=== PATIENT | female | born 1935 | race Caucasian/White ===

== ENCOUNTER 2018-01-17 14:25 | Inpatient (IN) | payer OTHER ==
[2018-01-17] MEDS ORDERED: IPRATROPIUM BROM 0.5MG/2.5ML ONE (15:30)
[2018-01-17] MEDS ORDERED: ALBUTEROL 2.5 MG/3 ML NEB SOL ONE (15:30)
[2018-01-17 15:56] LABS: Absolute Lymphocytes (CBC) 1.3 K/uL (0.7-4.9); Absolute Monocytes 1.7 K/uL (0.1-1.3); Absolute Neutrophil 12.1 K/uL (1.8-8.0); Basophils % 0.2 % (0-1.3); Eosinophils % 0.1 % (0-4.4); Hematocrit 32.8 % (36.0-45.0); Lymphocytes % 8.5 % (15.3-44.8); MCH 28.1 pg (27.0-35.0); MCV 83.3 fL (80-100); Monocytes % 11.1 % (3.3-12.3); Protime INR 1.13; RBC Red Blood Cell Count 3.94 M/uL (3.86-4.86)
[2018-01-17 16:07] LABS: ALT/SGPT 31 U/L (12-78); AST/SGOT 26 U/L (15-37); Albumin 3.4 g/dL (3.4-5.0); Alkaline Phosphatase 174 U/L (45-117); BUN Blood Urea Nitrogen 18 mg/dL (7-18); Bicarbonate 22 mmol/L (21-32); Bilirubin Direct 0.5 mg/dL (0-0.2); Bilirubin Total 1.2 mg/dL (0.2-1.0); Glucose Level 121 mg/dL (74-106); Magnesium 1.9 mg/dL (1.8-2.4); NT PRO-BNP 539 pg/mL (<450); Potassium 3.4 mmol/L (3.5-5.1); Sodium Level 138 mmol/L (136-145); Troponin (Emerg Dept Use Only) < 0.02 ng/mL (0.0-0.045)
[2018-01-17] MEDS ORDERED: ASPIRIN 81 MG CHEWABLE TABLET ONE (16:27)
[2018-01-17] MEDS ORDERED: POTASSIUM 25 MEQ EFFERV TAB ONE (16:27)
--- NOTE | 2018-01-17 16:34 | RAD REPORT ---
EXAM DESCRIPTION: [place] [facility] And Lat (2 Views)01/17/2018 4:24 pm CLINICAL HISTORY: Cough COMPARISON: 2015 FINDINGS: Bibasilar lung opacities are seen. Upper lobes are clear. Moderate hiatal hernia is presen t. The heart is normal size IMPRESSION: Bibasilar lung opacities probably represent pneumonia. The should be followed until it i s clear to help exclude post obstructive process/underlying mass
[2018-01-17] MEDS ORDERED: Levofloxacin500mg IV 500 MG/100 ML BAG IV ONE (17:04)
--- NOTE | 2018-01-17 17:18 | ER ---
Nurse's Notes [facility] Name: Suha Renae Age: 82 yrs Sex: Female : 1935 Arrival Date: 01/17/2018 Time: 14:27 Bed 23 Private MD: Diagnosis: Pneumonia due to other specified bacteria-Bibasilar Presentation: 01/17 14:39 Presenting complaint: Patient states: Chills and fever for the past 3 days. Patient aj1 states that she was recently diagnosed with COPD, and she coughs all the time but it has gotten worse over the past few days. TMax 103. Reports SOB. Transition of care: patient was not received from another setting of care. Onset of symptoms was January 14, 2018. Risk Assessment: Do you want to hurt yourself or someone else? Patient reports no desire to harm self or others. Initial Sepsis Screen: Does the patient meet any 2 criteria? HR > 90 bpm. No. Patient's initial sepsis screen is negative. Does the patient have a suspected source of infection? Yes: Productive cough/pneumonia. Care prior to arrival: None. 14:39 Method Of Arrival: Ambulatory aj1 14:39 Acuity: KIMBERLEY 3 aj1 Triage Assessment: 14:42 General: Appears in no apparent distress. comfortable, Behavior is calm, cooperative, aj1 appropriate for age. Neuro: Level of Consciousness is awake, alert, obeys commands. Cardiovascular: Patient's skin is warm and dry. Respiratory: Reports shortness of breath cough that is productive, Airway is patent Respiratory effort is even, unlabored, Respiratory pattern is regular, symmetrical, Onset: The symptoms/episode began/occurred 3 days ago. 15:05 Cardiovascular: Heart tones S1 S2 Rhythm is sinus rhythm. Respiratory: the patient has tw2 moderate shortness of breath. GI: No signs and/or symptoms were reported involving the gastrointestinal system. Abdomen is flat, Bowel sounds present X 4 quads. : No signs and/or symptoms were reported regarding the genitourinary system. Historical: - Allergies: 14:42 No Known Allergies; aj1 - PMHx: 14:42 Hypertension; COPD; aj1 - Immunization history:: Adult Immunizations. - Social history:: Smoking status: Patient/guardian denies using tobacco. - Ebola Screening: : Patient denies travel to an Ebola-affected area in the 21 days before illness onset. Screenin:06 Abuse screen: Denies threats or abuse. Nutritional screening: No deficits noted. tw2 Tuberculosis screening: No symptoms or risk factors identified. Fall Risk None identified. Assessment: 15:01 General: Appears in no apparent distress. slender, Behavior is calm, cooperative, tw2 appropriate for age. Pain: Denies pain. Neuro: Level of Consciousness is awake, alert, obeys commands, Oriented to person, place, time, situation. Cardiovascular: Heart tones S1 S2 Capillary refill < 3 seconds Patient's skin is warm and dry. Rhythm is. Respiratory: Reports shortness of breath at rest on exertion cough that is Airway is patent Respiratory effort is even, unlabored, Respiratory pattern is regular, symmetrical, Breath sounds are clear bilaterally. GI: No signs and/or symptoms were reported involving the gastrointestinal system. Abdomen is flat. : No signs and/or symptoms were reported regarding the genitourinary system. EENT: No signs and/or symptoms were reported regarding the EENT system. Derm: No signs and/or symptoms reported regarding the dermatologic system. Skin is dry. Musculoskeletal: Range of motion: intact in all extremities. 16:41 Reassessment: Patient appears in no apparent distress at this time. No changes from tw2 previously documented assessment. Patient and/or family updated on plan of care and expected duration. Pain level reassessed. Patient is alert, oriented x 3, equal unlabored respirations, skin warm/dry/pink. 17:28 Reassessment: Patient appears in no apparent distress at this time. No changes from tw2 previously documented assessment. Patient and/or family updated on plan of care and expected duration. Pain level reassessed. Patient is alert, oriented x 3, equal unlabored respirations, skin warm/dry/pink. 17:48 Reassessment: LACTATE 2.3, notified CATA Byrne, sepsis sheet in chart. tw2 18:21 Reassessment: Patient appears in no apparent distress at this time. No changes from tw2 previously documented assessment. Patient and/or family updated on plan of care and expected duration. Pain level reassessed. Patient is alert, oriented x 3, equal unlabored respirations, skin warm/dry/pink. 19:01 Reassessment: Patient appears in no apparent distress at this time. Patient and/or jb4 family updated on plan of care and expected duration. Pain level reassessed. Patient is alert, oriented x 3, equal unlabored respirations, skin warm/dry/pink. 20:00 Reassessment: Patient appears in no apparent distress at this time. Patient and/or jb4 family updated on plan of care and expected duration. Pain level reassessed. Patient is alert, oriented x 3, equal unlabored respirations, skin warm/dry/pink. 21:00 Reassessment: Patient appears in no apparent distress at this time. Patient and/or jb4 family updated on plan of care and expected duration. Pain level reassessed. Patient is alert, oriented x 3, equal unlabored respirations, skin warm/dry/pink. Vital Signs: 14:42 BP 144 / 98; Pulse 92; Resp 20; Temp 97.9(TE); Pulse Ox 97% on R/A; Weight 55.34 kg aj1 (R); Height 5 ft. 2 in. (157.48 cm) (R); Pain 0/10; 15:13 BP 137 / 71; Pulse 98; Resp 17; Pulse Ox 95% on R/A; tw2 16:15 BP 118 / 86; Pulse 93; Resp 17; Pulse Ox 95% on R/A; tw2 17:28 BP 121 / 63; Pulse 98; Resp 17; Pulse Ox 96% on R/A; tw2 18:21 BP 114 / 61; Pulse 94; Resp 17; Pulse Ox 95% on R/A; tw2 19:02 BP 116 / 60; Pulse 90; Resp 18; Pulse Ox 96% on R/A; jb4 20:00 BP 135 / 62; Pulse 90; Resp 18; Pulse Ox 96% on R/A; jb4 21:00 BP 119 / 59; Pulse 87; Resp 16; Pulse Ox 98% on R/A; jb4 14:42 Body Mass Index 22.31 (55.34 kg, 157.48 cm) aj1 ED Course: 14:27 Patient arrived in ED. as 14:41 Triage completed. aj1 14:42 Arm band placed on Patient placed in an exam room. aj1 14:57 Eliza Braswell, RN is Primary Nurse. tw2 14:58 Bed in low position. Call light in reach. electronic device monitor on. Pulse ox on. NIBP on. tw2 15:14 Bennett Alarcon PA is PHCP. cp 15:14 Eliseo Monique MD is Attending Physician. cp 15:30 Inserted saline lock: 22 gauge in right antecubital area, using aseptic technique. tw2 Blood collected. 15:36 Radiology exam delayed due to patient receiving breathing treatment at this time. az 15:37 Influenza Screen (a \T\ B) Sent. tw2 15:49 EKG done, by digital technician. reviewed by Bennett IVY. tc 16:23 X-ray completed. Patient tolerated procedure well. Patient moved back from radiology. az 16:24 XRAY Chest Pa And Lat (2 Views) In Process Unspecified. EDMS 17:16 Lia Jimenez MD is Hospitalizing Provider. cp 18:55 Report given to GHAZALA Sanchez. tw2 20:48 Primary Nurse role handed off by Eliza Braswell RN jb4 20:48 Daniel Andres RN is Primary Nurse. jb4 22:34 Repeat lab(s) drawn. by mt, sent to lab. jp3 22:34 Urine Dipstick--Ancillary (enter results) Sent. jp3 Administered Medications: 15:37 Drug: Albuterol - atroVENT (3:1) (2.5 mg - 0.5 mg) 3 ml Route: Nebulizer; tw2 19:03 Follow up: Response: No adverse reaction tw2 16:41 Drug: Aspirin Chewable Tablet 324 mg Route: PO; tw2 16:51 Follow up: Response: No adverse reaction tw2 16:41 Drug: Potassium Effervescent Tablet 25 mEq Route: PO; tw2 16:51 Follow up: Response: No adverse reaction tw2 16:55 Drug: LevaQUIN 500 mg Volume: 100 ml; Route: IVPB; Infused Over: 60 mins; Site: right tw2 antecubital; 18:18 Follow up: Response: No adverse reaction; IV Status: Completed infusion tw2 17:27 Drug: NS 0.9% 1000 ml Route: IV; Rate: 75 ml/hr; Site: right antecubital; tw2 17:52 Drug: NS 0.9% 500 ml Route: IV; Rate: bolus; Site: right antecubital; tw2 18:54 Follow up: IV Status: Completed infusion; IV Intake: 500ml tw2 Intake: 18:54 IV: 500ml; Total: 500ml. tw2 Outcome: 17:17 Decision to Hospitalize by Provider. cp 23:21 Patient left the ED. jb4 Signatures: Dispatcher [employer] EDMS Vika Peter, RN RN aj1 Eve Turner Tiffany, director software EKG Ttc Bennett Alarcon PA PA cp Wise, Tara, RN RN tw2 Daniel Andres RN RN jb4 Cullen Zee 3 Wen Vu
--- NOTE | 2018-01-17 17:18 | EDPHYS ---
Physician Documentation [facility] Name: Suha Renae Age: 82 yrs Sex: Female : 1935 Arrival Date: 01/17/2018 Time: 14:27 Bed 23 Private MD: ED Physician Eliseo Monique HPI: 01/17 15:25 This 82 yrs old Female presents to ER via Ambulatory with complaints of cp Shortness Of Breath, Cough. 15:25 The patient or guardian reports cough, that is intermittent, with productive sputum. cp 15:25 Onset: The symptoms/episode began/occurred 2 week(s) ago, and became worse 5 day(s) cp ago. Associated signs and symptoms: Pertinent positives: fever, Pertinent negatives: chest pain, diarrhea, vomiting. Severity of symptoms: in the emergency department the symptoms are unchanged despite home interventions. Patient reports fever of 103 yesterday. Has been taking OTC tylenol. Historical: - Allergies: 14:42 No Known Allergies; aj1 - PMHx: 14:42 Hypertension; COPD; aj1 - Immunization history:: Adult Immunizations. - Social history:: Smoking status: Patient/guardian denies using tobacco. - Ebola Screening: : Patient denies travel to an Ebola-affected area in the 21 days before illness onset. Exam: 15:45 Constitutional: The patient appears in no acute distress, alert, awake, cp non-diaphoretic, non-toxic, well developed, well nourished. 15:45 Head/Face: Normocephalic, atraumatic. cp 15:45 Eyes: Periorbital structures: appear normal, Conjunctiva: normal, no exudate, no injection, Sclera: no appreciated abnormality, Lids and lashes: appear normal, bilaterally. 15:45 ENT: External ear(s): are unremarkable, Ear canal(s): are normal, clear, TM's: bulging, is not appreciated, bilaterally, erythema, is not appreciated, bilaterally, Nose: is normal, Mouth: Lips: moist, Oral mucosa: pink and intact, moist, Posterior pharynx: is normal, airway is patent, no erythema, no exudate, Voice: is normal. 15:45 Neck: ROM/movement: is normal, is supple, without pain, no range of motions limitations, no meningismus, no nuchal rigidity, Lymph nodes: no appreciated lymphadenopathy. 15:45 Chest/axilla: Inspection: normal, Palpation: is normal, no crepitus, no tenderness. 15:45 Cardiovascular: Rate: normal, Rhythm: regular, Pulses: Pulses are 2+ in right radial artery and left radial artery. Edema: is not appreciated, JVD: is not appreciated. 15:45 Respiratory: the patient does not display signs of respiratory distress, Respirations: normal, no use of accessory muscles, no retractions, no splinting, no tachypnea, Breath sounds: decreased breath sounds, that are mild, throughout, rhonchi, that are mild, are located in both bases, stridor, is not appreciated. 15:45 Abdomen/GI: Inspection: abdomen appears normal, Bowel sounds: active, all quadrants, Palpation: abdomen is soft and non-tender, in all quadrants, rebound tenderness, is not appreciated, voluntary guarding, is not appreciated, involuntary guarding, is not appreciated. 15:45 Back: pain, is absent, ROM is normal. 15:45 Skin: cellulitis, is not appreciated, no rash present. 15:45 Neuro: Orientation: to person, place \T\ time. Mentation: is normal, Cerebellar function: is grossly normal, Motor: moves all fours, strength is normal, Sensation: is normal. 15:47 ECG was reviewed by the Attending Physician. cp Vital Signs: 14:42 BP 144 / 98; Pulse 92; Resp 20; Temp 97.9(TE); Pulse Ox 97% on R/A; Weight 55.34 kg aj1 (R); Height 5 ft. 2 in. (157.48 cm) (R); Pain 0/10; 15:13 BP 137 / 71; Pulse 98; Resp 17; Pulse Ox 95% on R/A; tw2 16:15 BP 118 / 86; Pulse 93; Resp 17; Pulse Ox 95% on R/A; tw2 17:28 BP 121 / 63; Pulse 98; Resp 17; Pulse Ox 96% on R/A; tw2 18:21 BP 114 / 61; Pulse 94; Resp 17; Pulse Ox 95% on R/A; tw2 19:02 BP 116 / 60; Pulse 90; Resp 18; Pulse Ox 96% on R/A; jb4 20:00 BP 135 / 62; Pulse 90; Resp 18; Pulse Ox 96% on R/A; jb4 21:00 BP 119 / 59; Pulse 87; Resp 16; Pulse Ox 98% on R/A; jb4 14:42 Body Mass Index 22.31 (55.34 kg, 157.48 cm) aj1 MDM: 15:20 Patient medically screened. 01/17 15:22 Order name: Basic Metabolic Panel; Complete Time: 16:08 cp 01/17 16:08 Interpretation: Normal except: K 3.4; GLUC 121; GFR 47. cp 01/17 15:22 Order name: CBC with Diff; Complete Time: 16:08 cp 01/17 16:09 Interpretation: Normal except: WBC 15.1; HGB 11.1; HCT 32.8; YOSEF% 80.1; LYM% 8.5; NEUT cp A 12.1; MNA 1.7. 01/17 15:22 Order name: LFT's; Complete Time: 16:08 cp 01/17 16:09 Interpretation: Normal except: ALK 174; BILIT 1.2; BILID 0.5; GLOB 4.6; A/G 0.7. cp 01/17 15:22 Order name: Magnesium; Complete Time: 16:08 cp 01/17 15:22 Order name: NT PRO-BNP; Complete Time: 16:08 cp 01/17 16:10 Interpretation: Abnormal: NT PRO-BNP 539. cp 01/17 15:22 Order name: PT-INR; Complete Time: 16:08 cp 01/17 16:10 Interpretation: PT 13.4; Reviewed. cp 01/17 15:22 Order name: Troponin (emerg Dept Use Only); Complete Time: 16:08 cp 01/17 15:22 Order name: Influenza Screen (a \T\ B); Complete Time: 16:46 cp 01/17 15:22 Order name: Procalcitonin; Complete Time: 16:22 cp 01/17 16:22 Interpretation: Abnormal: Procalcitonin 0.73. cp 01/17 16:09 Order name: Urine Microscopic Only cp 01/17 16:22 Order name: Blood Culture Adult (2) cp 01/17 17:00 Order name: Lactate; Complete Time: 17:48 EDMS 01/17 17:48 Interpretation: LAC 2.3; Reviewed. cp 01/17 20:07 Order name: Urine Dipstick--Ancillary (enter results) mt 01/17 20:41 Order name: Urine Dipstick-Ancillary EDMS 01/17 15:22 Order name: EKG; Complete Time: 15:23 cp 01/17 15:22 Order name: Cardiac monitoring; Complete Time: 15:37 cp 01/17 15:22 Order name: EKG - Nurse/Tech; Complete Time: 15:37 cp 01/17 15:22 Order name: IV Saline Lock; Complete Time: 15:37 cp 01/17 15:22 Order name: Labs collected and sent; Complete Time: 15:37 cp 01/17 15:22 Order name: XRAY Chest Pa And Lat (2 Views); Complete Time: 16:46 cp 01/17 18:17 Order name: Diet Heart Healthy; Complete Time: 18:18 tw2 01/17 20:42 Order name: Lactate Sepsis 2 HR Follow-up EDMS 01/17 22:58 Order name: Lactate EDMS 01/17 15:22 Order name: O2 Per Protocol; Complete Time: 15:37 cp 01/17 15:22 Order name: O2 Sat Monitoring; Complete Time: 15:37 cp 01/17 16:09 Order name: Urine Dipstick-Ancillary (obtain specimen); Complete Time: 20:06 cp EC:47 Rate is 88 beats/min. Rhythm is regular. NC interval is normal. QRS interval is normal. cp QT interval is normal. T waves are Inverted in lead aVL. Interpreted by me. Reviewed by me. Administered Medications: 15:37 Drug: Albuterol - atroVENT (3:1) (2.5 mg - 0.5 mg) 3 ml Route: Nebulizer; tw2 19:03 Follow up: Response: No adverse reaction tw2 16:41 Drug: Aspirin Chewable Tablet 324 mg Route: PO; tw2 16:51 Follow up: Response: No adverse reaction tw2 16:41 Drug: Potassium Effervescent Tablet 25 mEq Route: PO; tw2 16:51 Follow up: Response: No adverse reaction tw2 16:55 Drug: LevaQUIN 500 mg Volume: 100 ml; Route: IVPB; Infused Over: 60 mins; Site: right tw2 antecubital; 18:18 Follow up: Response: No adverse reaction; IV Status: Completed infusion tw2 17:27 Drug: NS 0.9% 1000 ml Route: IV; Rate: 75 ml/hr; Site: right antecubital; tw2 17:52 Drug: NS 0.9% 500 ml Route: IV; Rate: bolus; Site: right antecubital; tw2 18:54 Follow up: IV Status: Completed infusion; IV Intake: 500ml tw2 Disposition: 01/17/18 17:17 Hospitalization ordered by Lia Jimenez for Inpatient Admission. Preliminary diagnosis is Pneumonia due to other specified bacteria - Bibasilar. - Bed requested for Telemetry/MedSurg (Inpatient). - Status is Inpatient Admission. jb4 - Condition is Stable. - Problem is new. - Symptoms have improved. UTI on Admission? No Signatures: Dispatcher [employer] EDIA Vika Peter, RN RN aj1 Bennett Alarcon PA PA cp Wise, Tara, RN RN tw2 Daniel Andres RN RN jb4 Mary Dumont ri Corrections: (The following items were deleted from the chart) 15:38 15:23 Chest Single View+RAD.RAD.BRZ ordered. EDIA EDMS 16:09 16:08 Normal except: WBC 15.1; HGB 11.1; HCT 32.8; YOSEF% 80.1; LYM% 8.5; NEUT A 12.1. cp cp 17:48 17:48 Reviewed. cp cp 22:20 17:17 Hospitalization Ordered by Lia Jimenez MD for Inpatient Admission. Preliminary mt diagnosis is Pneumonia due to other specified bacteria - Bibasilar. Bed requested for Telemetry/MedSurg (Inpatient). Status is Inpatient Admission. Condition is Stable. Problem is new. Symptoms have improved. UTI on Admission? No. cp 23:21 22:20 01/17/2018 17:17 Hospitalization Ordered by Lia Jimenez MD for Inpatient jb4 Admission. Preliminary diagnosis is Pneumonia due to other specified bacteria - Bibasilar. Bed requested for Telemetry/MedSurg (Inpatient). Status is Inpatient Admission. Condition is Stable. Problem is new. Symptoms have improved. UTI on Admission? No. mt
[2018-01-17] MEDS ORDERED: NA CHLORIDE 0.9% 1,000 ML ONE (17:27)
[2018-01-17] MEDS ORDERED: NA CHLORIDE 0.9% 500 ML ONE (17:58)
[2018-01-17 20:29] LABS: Urine Bacteria <20 /HPF (<20); Urine Culture Reflex Order REFLEXED; Urine RBC NONE SEEN /HPF (NONE SEEN)
[2018-01-17 20:41] LABS: Urine Blood NEGATIVE (NEG); Urine Glucose NEGATIVE (NEG); Urine Protein 1+ (NEG); Urine Specific Gravity 1.015 (1.005-1.030)
--- NOTE | 2018-01-17 21:54 | P.HP ---
Certification for Inpatient Patient admitted to: Inpatient With expected LOS: >2 Midnights Practitioner: I am a practitioner with admitting privileges, knowledge of patient current condition, hospital course, and medical plan of care. Services: Services provided to patient in accordance with Admission requirements found in Title 42 Section 412.3 of the Code of Federal Regulations Patient History Date of Service: 01/18/18 Reason for admission: Shortness of breath History of Present Illness: This is a 82 year old female with hx of HTN, GERD and COPD admitted for shortness of breath. Per pateint, this started 5 days ago, but for the past 3 days, it has been progressively worsening and she has had cough with non bloody sputum along with fevers, chills and generalized weakness. She reports Tm to be 103 at home. She saw a doctor in her clinic in [place], who sent her to the ED. In the ER, she reports feeling a little better, though is still having the cough. Her breathing has improved. At the time of my examination, she was alert, oriented x 3, and breathing well on room air. Allergies No Known Allergies Allergy (Unverified 10/19/15 01:35) Home Medications: Albuterol Sulfate [Proair Hfa] 8.5 gm IH PRN 10/19/15 Duloxetine HCl [Cymbalta] 60 mg PO DAILY 10/19/15 Losartan Potassium [Cozaar] 25 mg PO DAILY 10/19/15 Pregabalin [Lyrica] 150 mg PO BID 10/19/15 Docosahexanoic AC/Epa [Fish Oil 1,000 MG*] 1 cap PO DAILY 01/17/18 Omeprazole [Prilosec] 40 mg PO DAILY 01/17/18 Sennosides/Docusate Sodium [Stool Softener-Laxative Tablet] 1 tab PO DAILY 01/17 Acetaminophen [Tylenol Extra Strength] 2 tab PO PRN PRN 01/18/18 - Past Medical/Surgical History Diabetic: No -: Hypertension -: Asthma -: Hyperlipidemia -: GERD -: Urinary incontinence -: Osteoarthritis -: Hysterectomy -: Right knee replacement Psychosocial/ Personal History: She is since 1953. She has 4 children. She used to work odd jobs. - Family History Mother -: Other (see notes) Notes: parkinsons Father -: Lung disease, Other (see notes) Notes: copd - Social History Smoking Status: Never smoker Alcohol use: Yes CD- Drugs: No Caffeine use: Yes Review of Systems General: Fever, Chills, Weakness, Malaise, As per HPI Eyes: Unremarkable ENT: Unremarkable Respiratory: Cough, Shortness of Breath, Sputum, As per HPI Cardiovascular: Unremarkable Gastrointestinal: Unremarkable Genitourinary: Unremarkable Musculoskeletal: Unremarkable Integumentary: Unremarkable Neurological: Unremarkable Lymphatics: Unremarkable Physical Examination - Physical Exam General: Alert, In no apparent distress HEENT: Atraumatic, PERRLA, Mucous membr. moist/pink, EOMI, Sclerae nonicteric Neck: Supple, 2+ carotid pulse no bruit, No LAD, Without JVD or thyroid abnormality Respiratory: Crackles/rales, Rhonchi/gurgles Cardiovascular: Regular rate/rhythm, Normal S1 S2 Gastrointestinal: Normal bowel sounds, No tenderness Musculoskeletal: No tenderness Integumentary: No rashes Neurological: Normal gait, Normal speech, Normal strength at 5/5 x4 extr, Normal tone, Normal affect - Studies Laboratory Data (last 24 hrs) 01/17/18 15:25: PT 13.4 H, INR 1.13 01/17/18 15:25: WBC 15.1 H, Hgb 11.1 L, Hct 32.8 L, Plt Count 242 01/17/18 15:25: Sodium 138, Potassium 3.4 L, BUN 18, Creatinine 1.10, Glucose 121 H, Magnesium 1.9, Total Bilirubin 1.2 H, AST 26, ALT 31, Alkaline Phosphatase 174 H Microbiology Data (last 24 hrs): 01/17/18 15:25 Nasopharnyx Influenza Type A Antigen Screen - Final 01/17/18 15:25 Nasopharnyx Influenza Type B Antigen Screen - Final Assessment and Plan - Problems (Diagnosis) (1) Sepsis Onset Date: 01/18/18 Current Visit: Yes Status: Acute Plan: Meets sepsis criteria: HR>90, WBC>12,000, and source: PNA LA elevated; pending blood cultures IVFs, IV antibiotics Recheck Lactate (2) Pneumonia Onset Date: 01/18/18 Current Visit: Yes Status: Acute Plan: Bibasilar pneumonia noted on chest x-ray. Start IV antibiotics - Levaquin Oxygen p.r.n. via nasal cannula Monitor oxygen saturation (3) Dyspnea Onset Date: 01/18/18 Current Visit: Yes Status: Acute Plan: Likely secondary to PNA O2 prn Breathing treatments IV Antibiotics (4) GERD (gastroesophageal reflux disease) Onset Date: 01/18/18 Current Visit: Yes Status: Acute Plan: Stable, will continue home medications once reconciled. (5) COPD (chronic obstructive pulmonary disease) Onset Date: 01/18/18 Current Visit: Yes Status: Acute (6) Hypertension Current Visit: No Status: Chronic Plan: Stable at this time. Will restart home medications as needed Qualifiers: - Advance Directives Does patient have a Living Will: No Does patient have a Durable POA for Healthcare: No
[2018-01-17] MEDS ORDERED: ONDANSETRON 4 MG/2 ML VIAL IV PRN (23:07)
[2018-01-17 23:27] VITALS: BMI 21.6
[2018-01-18] MEDS: ACETAMINOPHEN 500 MG TAB PO PRN ×4 (00:40→20:40)
[2018-01-18 05:20] LABS: Absolute Lymphocytes (CBC) 1.6 K/uL (0.7-4.9); Absolute Monocytes 1.5 K/uL (0.1-1.3); Absolute Neutrophil 10.4 K/uL (1.8-8.0); Basophils % 0.2 % (0-1.3); Eosinophils % 0.1 % (0-4.4); Hematocrit 28.1 % (36.0-45.0); Lymphocytes % 11.7 % (15.3-44.8); MCH 27.7 pg (27.0-35.0); MCV 82.9 fL (80-100); MPV 9.2 fL (7.6-11.3); Monocytes % 10.9 % (3.3-12.3); RBC Red Blood Cell Count 3.38 M/uL (3.86-4.86)
[2018-01-18 05:47] LABS: Albumin 2.6 g/dL (3.4-5.0); Bilirubin Total 0.9 mg/dL (0.2-1.0); Protein, Total 6.2 g/dL (6.4-8.2)
[2018-01-18] MEDS ORDERED: PNEUMOCOCCAL VACCINE 0.5 ML IMVAC ONE (06:00)
[2018-01-18] MEDS ORDERED: INFLUENZA VACCINE (for 3y+) 0.5 ML DOSE IMVAC ONE (06:00)
--- NOTE | 2018-01-18 07:14 | EKG ---
Test Date: 2018-01-17 Test Time: 15:45:36 Miniature Model Maker: TC/V MEASUREMENT RESULTS: Intervals: Rate: 88 AZ: 124 QRSD: 78 QT: 352 QTc: 425 [place]: P: 16 AZ: 124 QRS: 55 T: 45 INTERPRETIVE STATEMENTS: Normal sinus rhythm Normal ECG Compared to ECG 10/19/2015 10:59:25 Sinus bradycardia no longer present Electronically Signed On 01-18-18 07:13:20 CDT by Nathan Medina
[2018-01-18] MEDS: ENOXAPARIN 40 MG/0.4 ML SQ SCH (08:40)
[2018-01-18] MEDS: POTASS/SODIUM PHOSPHATE 1 PKT POWD.PACK PO SCH ×3 (08:41→11:20)
[2018-01-18] MEDS ORDERED: POTASS/SODIUM PHOSPHATE 1 PKT POWD.PACK PO ONE (09:00)
[2018-01-18] MEDS ORDERED: HOME MED 1 EA UNK (Losartan Potassium [Cozaar] 25 MG) PO SCH (13:00)
[2018-01-18] MEDS ORDERED: HOME MED 1 EA UNK (Duloxetine Hcl [Cymbalta] 60 MG) PO SCH (13:00)
[2018-01-18] MEDS: PREGABALIN 150 MG CAP PO SCH ×2 (14:02→20:40)
[2018-01-18] MEDS: DULOXETINE 30 MG CAP PO SCH (14:02)
[2018-01-18] MEDS: PANTOPRAZOLE 40MG TABLET PO SCH (14:02)
[2018-01-18] MEDS: LOSARTAN POTASSIUM 50 MG TABLET PO SCH (14:03)
[2018-01-18] MEDS: ALBUTEROL 2.5 MG/3 ML NEB SOL NEB SCH ×3 (15:35→23:30)
[2018-01-18] MEDS: IPRATROPIUM BROM 0.5MG/2.5ML NEB SCH ×3 (15:35→23:30)
--- NOTE | 2018-01-18 16:14 | P.PN ---
Subjective Date of Service: 01/18/18 Chief Complaint: Shortness of breath Patient seen and examined at bedside. No family at bedside. Case discussed with nursing staff. Patient reports feeling much better, breathing has almost returned to baseline. Still reports feeling slightly weak but overall improved. Afebrile overnight and denies any chills, chest pain, nausea or vomiting. Tolerating oral diet without any problems. Review of Systems As noted above Physical Examination - Vital Signs Temperature: 98.3 F Blood Pressure: 159/70 Pulse: 86 Respirations: 95 Pulse Ox (%): 95 - Physical Exam General: Alert, In no apparent distress HEENT: Atraumatic, PERRLA, EOMI Neck: Supple, JVD not distended Respiratory: Normal air movement, Crackles/rales Cardiovascular: Regular rate/rhythm, Normal S1 S2 Gastrointestinal: Normal bowel sounds, No tenderness Musculoskeletal: No tenderness Integumentary: No rashes Neurological: Normal speech, Normal tone, Normal affect - Studies Microbiology Data (last 24 hrs): 01/17/18 15:25 Nasopharnyx Influenza Type A Antigen Screen - Final 01/17/18 15:25 Nasopharnyx Influenza Type B Antigen Screen - Final Medications List Reviewed: Yes Assessment And Plan - Current Problems (Diagnosis) (1) Sepsis Onset Date: 01/18/18 Current Visit: Yes Status: Acute Plan: Resolved. Lactic acid normalized after IV fluids. blood cultures, no growth in 24 hr. Continue IV antibiotics. (2) Pneumonia Onset Date: 01/18/18 Current Visit: Yes Status: Acute Plan: Bibasilar pneumonia noted on chest x-ray. Continue IV antibiotics - Levaquin Oxygen p.r.n. via nasal cannula Monitor oxygen saturation (3) Dyspnea Onset Date: 01/18/18 Current Visit: Yes Status: Acute Plan: Resolved. Now breathing well on room air. Likely secondary to PNA O2 prn, continue Breathing treatments and IV Antibiotics (4) GERD (gastroesophageal reflux disease) Onset Date: 01/18/18 Current Visit: Yes Status: Acute Plan: Stable, will continue home Protonix (5) COPD (chronic obstructive pulmonary disease) Onset Date: 01/18/18 Current Visit: Yes Status: Acute Plan: Continue home medications. Breathing treatments as needed. Dyspnea has resolved at this time. (6) Hypertension Current Visit: No Status: Chronic Plan: Stable at this time. Continue home medication, losartan Qualifiers:
[2018-01-18] MEDS ORDERED: Levofloxacin 250mg IV 250 MG/50 ML BAG IV SCH (17:00)
[2018-01-19] MEDS: ACETAMINOPHEN 500 MG TAB PO PRN ×2 (00:25→09:02)
[2018-01-19] MEDS: IPRATROPIUM BROM 0.5MG/2.5ML NEB SCH (03:35)
[2018-01-19] MEDS: ALBUTEROL 2.5 MG/3 ML NEB SOL NEB SCH (03:36)
[2018-01-19 05:10] LABS: Absolute Lymphocytes (CBC) 2.3 K/uL (0.7-4.9); Absolute Monocytes 1.4 K/uL (0.1-1.3); Absolute Neutrophil 7.7 K/uL (1.8-8.0); Basophils % 0.2 % (0-1.3); Hematocrit 27.4 % (36.0-45.0); MCH 27.5 pg (27.0-35.0); MCV 82.3 fL (80-100); MPV 9.1 fL (7.6-11.3); Monocytes % 12.4 % (3.3-12.3); RBC Red Blood Cell Count 3.32 M/uL (3.86-4.86)
[2018-01-19 05:28] LABS: Albumin 2.5 g/dL (3.4-5.0); Bilirubin Total 0.8 mg/dL (0.2-1.0); Phosphorus 3.6 mg/dL (2.5-4.9); Potassium 3.6 mmol/L (3.5-5.1); Protein, Total 6.3 g/dL (6.4-8.2)
[2018-01-19] MEDS ORDERED: POTASSIUM 25 MEQ EFFERV TAB PO ONE (06:06)
[2018-01-19] MEDS: PANTOPRAZOLE 40MG TABLET PO SCH (06:34)
[2018-01-19] MEDS ORDERED: ALBUTEROL 2.5 MG/3 ML NEB SOL NEB PRN (07:07)
[2018-01-19] MEDS ORDERED: IPRATROPIUM BROM 0.5MG/2.5ML NEB PRN (07:07)
--- NOTE | 2018-01-19 08:39 | RAD REPORT ---
EXAM DESCRIPTION: RAD - Chest Single View - 01/19/2018 8:14 am CLINICAL HISTORY: Pneumonia COMPARISON: January 17 TECHNIQUE: AP portable chest image was obtained 0604 hours . FINDINGS: Right base pneumonia changes are present. No significant change from the prior study. The shallow inspiration portable exam accentuates the right base infiltrate. Right heart border remains o bscured. Stranding in the left base has cleared. Heart and vasculature are normal. No measurable pleural effusion and no pneumothorax. No acute bony abnormality seen. No acute aortic findings suspected. IMPRESSION: Left base pneumonia changes have cleared. Right middle lobe pneumonia changes stable from January 17.
[2018-01-19] MEDS ORDERED: HOME MED 1 EA UNK (Omeprazole [Prilosec] 40 MG) PO SCH (09:00)
[2018-01-19] MEDS: DULOXETINE 30 MG CAP PO SCH (09:02)
[2018-01-19] MEDS: LOSARTAN POTASSIUM 50 MG TABLET PO SCH (09:02)
[2018-01-19] MEDS: PREGABALIN 150 MG CAP PO SCH (09:02)
[2018-01-19] MEDS: ENOXAPARIN 40 MG/0.4 ML SQ SCH (09:03)
[2018-01-19 13:19] VITALS: O2SAT 94
[2018-01-19 14:13] VITALS: BP 107/65; TEMP 97.8
--- NOTE | 2018-01-19 14:45 | P.DS ---
Admission Date: 01/17/18 Discharge Date: 01/19/18 Disposition: ROUTINE DISCHARGE Discharge Condition: GOOD Reason for Admission: Shortness of breath - Problems (1) Sepsis Onset Date: 01/18/18 Current Visit: Yes Status: Resolved (2) Pneumonia Onset Date: 01/18/18 Current Visit: Yes Status: Acute (3) Dyspnea Onset Date: 01/18/18 Current Visit: Yes Status: Resolved (4) GERD (gastroesophageal reflux disease) Onset Date: 01/18/18 Current Visit: Yes Status: Chronic (5) COPD (chronic obstructive pulmonary disease) Onset Date: 01/18/18 Current Visit: Yes Status: Chronic (6) Hypertension Current Visit: No Status: Chronic Qualifiers: Brief History of Present Illness: This is a 82 year old female with hx of HTN, GERD and COPD admitted for shortness of breath. Per pateint, this started 5 days ago, but for the past 3 days, it has been progressively worsening and she has had cough with non bloody sputum along with fevers, chills and generalized weakness. She reports Tm to be 103 at home. She saw a doctor in her clinic in [place], who sent her to the ED. In the ER, she reports feeling a little better, though is still having the cough. Her breathing has improved. At the time of my examination, she was alert, oriented x 3, and breathing well on room air. Hospital Course: The patient was admitted for pneumonia. On admission, patient and sepsis criteria, which resolved with IV fluids and IV antibiotics. Blood cultures were sent prior to starting antibiotics, no growth noted in 48 hr. She was noted to have bibasilar pneumonia on chest x-ray. She was started on IV Levaquin given oxygen as needed as well as breathing treatments as needed. Her symptoms improved drastically on 2nd day of admission. On the day of discharge , her repeat chest x-ray showed improvement and patient's symptoms had resolved. She denied any chest pain, shortness of breath, nausea, vomiting for headaches. For her as occurred, and she was started on her home dose of Protonix remained stable. For her COPD, breathing treatments were provided as needed and at the time of discharge she was breathing well on room air. For for her hypertension, she remained stable on her home medications. No changes needed to be made on her home medications. Vital Signs/Physical Exam: Temp Pulse Resp BP Pulse Ox 97.8 F 88 16 107/65 96 01/19/18 12:00 01/19/18 12:00 01/19/18 12:00 01/19/18 12:00 01/19/18 12:00 General: Alert, In no apparent distress HEENT: Atraumatic, PERRLA, EOMI Neck: Supple, JVD not distended Respiratory: Clear to auscultation bilaterally, Normal air movement Cardiovascular: Regular rate/rhythm, Normal S1 S2 Gastrointestinal: Normal bowel sounds, No tenderness Musculoskeletal: No tenderness Integumentary: No rashes Neurological: Normal speech, Normal tone, Normal affect Laboratory Data at Discharge: WBC 11.4 K/uL (4.3-10.9) H D 01/19/18 04:27 Hgb 9.1 g/dL (12.0-15.0) L 01/19/18 04:27 Hct 27.4 % (36.0-45.0) L 01/19/18 04:27 Plt Count 213 K/uL (152-406) 01/19/18 04:27 PT 13.4 SECONDS (9.5-12.5) H 01/17/18 15:25 INR 1.13 01/17/18 15:25 Sodium 142 mmol/L (136-145) 01/19/18 04:27 Potassium 3.6 mmol/L (3.5-5.1) 01/19/18 04:27 BUN 13 mg/dL (7-18) 01/19/18 04:27 Creatinine 0.90 mg/dL (0.55-1.3) 01/19/18 04:27 Glucose 105 mg/dL (74-106) 01/19/18 04:27 Phosphorus 3.6 mg/dL (2.5-4.9) 01/19/18 04:27 Magnesium 1.9 mg/dL (1.8-2.4) 01/17/18 15:25 Total Bilirubin 0.8 mg/dL (0.2-1.0) 01/19/18 04:27 AST 26 U/L (15-37) 01/19/18 04:27 ALT 26 U/L (12-78) 01/19/18 04:27 Alkaline Phosphatase 174 U/L (45-117) H 01/19/18 04:27 Home Medications: Albuterol Sulfate [Proair Hfa] 8.5 gm IH PRN 10/19/15 Duloxetine HCl [Cymbalta] 60 mg PO DAILY 10/19/15 Losartan Potassium [Cozaar] 25 mg PO DAILY 10/19/15 Pregabalin [Lyrica] 150 mg PO BID 10/19/15 Docosahexanoic AC/Epa [Fish Oil 1,000 MG*] 1 cap PO DAILY 01/17/18 Omeprazole [Prilosec] 40 mg PO DAILY 01/17/18 Sennosides/Docusate Sodium [Stool Softener-Laxative Tablet] 1 tab PO DAILY 01/17 Acetaminophen [Tylenol Extra Strength] 2 tab PO PRN PRN 01/18/18 Levofloxacin [Levaquin] 500 mg PO DAILY 5 Days #5 tablet 01/19/18 New Medications: Levofloxacin [Levaquin] 500 mg PO DAILY 5 Days #5 tablet Patient Discharge Instructions: Please complete a course of antibiotics. Prescription sent to your pharmacy. Please follow up with the primary care physician in 1 week. Diet: Regular Activity: Ad katerina Time spent managing pt's care (in minutes): 50
== END 2018-01-19 15:05 | disposition home or self-care (01) | DRG 871 ==
LOC: ER 14:25 → ERHOLD 17:37 → 2ND 22:55
PROVIDERS: ADMIT Family Medicine; ATTEND Family Medicine
DX: A41.9 Sepsis, unspecified organism (principal); J18.9 Pneumonia, unspecified organism; E78.5 Hyperlipidemia, unspecified; K21.9 Gastro-esophageal reflux disease without esophagitis; M19.90 Unspecified osteoarthritis, unspecified site; Z96.651 Presence of right artificial knee joint; R06.00 Dyspnea, unspecified; I10 Essential (primary) hypertension; J44.9 Chronic obstructive pulmonary disease, unspecified
CPT/HCPCS: 36415; 71045; 71046; 80048; 80053; 80076; 81003; 81015; 82962; 83605; 83735; 83880; 84100; 84145; 84484; 85025; 85610; 87040; 87070; 87086; 87088; 87205; 87804; 93005; 94640; 94760; 96361; 96365; 99285; G0008; J1650; J7030; Q2035

== ENCOUNTER 2018-03-02 09:22 | Observation (INO) | payer OTHER ==
--- OUTSIDE RECORDS SUMMARY | 2018-03-02 09:24 | XMS REPORT ---
:1935 Author Organization [facility] Address [address] [place] [address] Care Team Providers Name Role Phone Unavailable Unavailable Unavailable Problems This patient has no known problems. Allergies, Adverse Reactions, Alerts This patient has no known allergies or adverse reactions. Medications This patient has no known medications.
[2018-03-02] MEDS ORDERED: LEVALBUTEROL 1.25 MG/3 ML NEB ONE (10:26)
[2018-03-02 10:50] LABS: Absolute Lymphocytes (CBC) 0.9 K/uL (0.7-4.9); Absolute Monocytes 0.9 K/uL (0.1-1.3); Absolute Neutrophil 10.2 K/uL (1.8-8.0); Basophils % 0.2 % (0-1.3); Eosinophils % 0.1 % (0-4.4); Lymphocytes % 7.7 % (15.3-44.8); MCH 27.8 pg (27.0-35.0); MCV 79.9 fL (80-100); MPV 8.6 fL (7.6-11.3); Monocytes % 7.5 % (3.3-12.3); RBC Red Blood Cell Count 4.13 M/uL (3.86-4.86)
[2018-03-02 11:00] LABS: Potassium 3.4 mmol/L (3.5-5.1)
--- NOTE | 2018-03-02 11:18 | RAD REPORT ---
EXAM DESCRIPTION: RAD - Chest Single View - 03/02/2018 11:08 am CLINICAL HISTORY: Cough;Congestion Chest pain. COMPARISON: Chest Pa And Lat (2 Views) dated 02/26/2018; Chest Single View dated 01/19/2018; Chest Pa And Lat (2 Views) dated 01/17/2018; CHEST PA AND LAT 2 VIEW dated 12/02/2014 FINDINGS: Portable technique limits examination quality. Ill-defined opacity appears progressive in the medial right lung base since the comparative study. Th e remainder of the lungs appear clear. The heart is normal in size. Moderate hiatal hernia is present . IMPRESSION: Progressive ill-defined consolidation in the medial right lung base likely represents pn eumonia.
[2018-03-02] MEDS ORDERED: ONDANSETRON 4 MG/2 ML VIAL IV PRN (12:52)
--- NOTE | 2018-03-02 12:57 | EDPHYS ---
Physician Documentation [facility] Name: Suha Renae Age: 82 yrs Sex: Female : 1935 Arrival Date: 03/02/2018 Time: 09:24 Bed 14 Private MD: ED Physician Eliseo Monique HPI: 03/02 17:45 This 82 yrs old Female presents to ER via Wheelchair with complaints of kdr Cough, Breathing Difficulty. 17:45 The patient or guardian reports cough, that is intermittent, described as mild, with kdr productive sputum, that is green, difficulty breathing. Onset: The symptoms/episode began/occurred gradually, 3 week(s) ago. Severity of symptoms: At their worst the symptoms were mild, moderate, in the emergency department the symptoms are unchanged. Modifying factors: The symptoms are alleviated by nothing, the symptoms are aggravated by exertion. Associated signs and symptoms: Pertinent positives: fever, Pertinent negatives: chest pain, diarrhea, ear ache, nausea, rhinorrhea, sore throat, vomiting. The patient has experienced similar episodes in the past, a few times. The patient has been recently seen by a physician: The patient was hospitalized about two weeks ago for leonardo problem. Family feels that they patient was released too soon. Now URI s/s persist and worsen. Historical: - Allergies: 09:38 No Known Allergies; sg - PMHx: 09:38 COPD; Hypertension; sg - Immunization history:: Adult Immunizations not up to date. - Social history:: Smoking status: Patient uses tobacco products. - Ebola Screening: : Patient negative for fever greater than or equal to 101.5 degrees Fahrenheit, and additional compatible Ebola Virus Disease symptoms Patient denies exposure to infectious person Patient denies travel to an Ebola-affected area in the 21 days before illness onset No symptoms or risks identified at this time. ROS: 17:45 Constitutional: Negative for fever, chills, and weight loss, Eyes: Negative for injury, kdr pain, redness, and discharge, ENT: Negative for injury, pain, and discharge, Neck: Negative for injury, pain, and swelling, Cardiovascular: Negative for chest pain, palpitations, and edema, Abdomen/GI: Negative for abdominal pain, nausea, vomiting, diarrhea, and constipation, Back: Negative for injury and pain, : Negative for injury, bleeding, discharge, and swelling, MS/Extremity: Negative for injury and deformity, Skin: Negative for injury, rash, and discoloration, Neuro: Negative for headache, weakness, numbness, tingling, and seizure activity. Psych: Negative for depression, anxiety, suicide ideation, homicidal ideation, and hallucinations, Allergy/Immunology: Negative for hives, rash, and allergies, Endocrine: Negative for neck swelling, polydipsia, polyuria, polyphagia, and marked weight changes, Hematologic/Lymphatic: Negative for swollen nodes, abnormal bleeding, and unusual bruising. 17:45 Respiratory: Positive for cough, with green sputum, dyspnea on exertion, shortness of breath, Negative for Exam: 17:45 Constitutional: This is a well developed, well nourished patient who is awake, alert, kdr and in no acute distress. Head/Face: Normocephalic, atraumatic. Eyes: Pupils equal round and reactive to light, extra-ocular motions intact. Lids and lashes normal. Conjunctiva and sclera are non-icteric and not injected. Cornea within normal limits. Periorbital areas with no swelling, redness, or edema. Neck: Trachea midline, no thyromegaly or masses palpated, and no cervical lymphadenopathy. Supple, full range of motion without nuchal rigidity, or vertebral point tenderness. No Meningismus. Chest/axilla: Normal chest wall appearance and motion. Nontender with no deformity. No lesions are appreciated. Cardiovascular: Regular rate and rhythm with a normal S1 and S2. No gallops, murmurs, or rubs. Normal PMI, no JVD. No pulse deficits. Abdomen/GI: Soft, non-tender, with normal bowel sounds. No distension or tympany. No guarding or rebound. No evidence of tenderness throughout. Back: No spinal tenderness. No costovertebral tenderness. Full range of motion. Skin: Warm, dry with normal turgor. Normal color with no rashes, no lesions, and no evidence of cellulitis. MS/ Extremity: Pulses equal, no cyanosis. Neurovascular intact. Full, normal range of motion. Neuro: Awake and alert, GCS 15, oriented to person, place, time, and situation. Cranial nerves II-XII grossly intact. Motor strength 5/5 in all extremities. Sensory grossly intact. Cerebellar exam normal. Normal gait. Psych: Awake, alert, with orientation to person, place and time. Behavior, mood, and affect are within normal limits. 17:45 Respiratory: the patient does not display signs of respiratory distress, Respirations: Breath sounds: rales, rhonchi. Vital Signs: 09:36 BP 142 / 92; Pulse 92; Resp 17; Temp 98.2; Pulse Ox 100% on R/A; Weight 61.23 kg (R); sg Height 5 ft. 2 in. (157.48 cm); Pain 6/10; 11:00 BP 150 / 92; Pulse 99; Resp 20; Pulse Ox 97% on R/A; Pain 6/10; sg 12:40 BP 152 / 99; Pulse 116; Resp 32; Pulse Ox 96% on R/A; Pain 6/10; sg 12:44 Pulse 97; Resp 30; Pulse Ox 94% on R/A; sg 09:36 Body Mass Index 24.69 (61.23 kg, 157.48 cm) sg 12:44 pt assisted back to bed, pt encouraged to deep breath and focus on decreasing RR at sg this time MDM: 12:56 Patient medically screened. kdr 12:58 Data reviewed: vital signs. ED course: With exertion, the patient HR increased to kdr 120's. Sats decreased to low 90's the patient was o/w stable. 03/02 10:09 Order name: CBC with Diff; Complete Time: 12:21 kdr 03/02 10:09 Order name: Chem 7; Complete Time: 12:21 kdr 03/02 10:09 Order name: Blood Culture Adult (2) kdr 03/02 12:55 Order name: CBC with Automated Diff EDMS 03/02 12:55 Order name: CBC with Automated Diff EDMS 03/02 12:55 Order name: CBC with Automated Diff EDMS 03/02 12:55 Order name: CBC with Automated Diff EDMS 03/02 12:55 Order name: Comprehensive Metabolic Panel EDMS 03/02 12:55 Order name: Comprehensive Metabolic Panel EDMS 03/02 12:55 Order name: Comprehensive Metabolic Panel EDMS 03/02 12:55 Order name: Comprehensive Metabolic Panel EDMS 03/02 12:57 Order name: Flu kdr 03/02 12:57 Order name: Procalcitonin kdr 03/02 12:57 Order name: Lactate kdr 03/02 10:09 Order name: CXR XRAY; Complete Time: 12:21 kdr 03/02 12:24 Order name: Misc. Order: Ambulate patient and record post ambulation VS; Complete Time: kdr 12:41 03/02 12:55 Order name: Heart Healthy EDMS 03/02 13:41 Order name: Influenza Screen (A EDMS Administered Medications: 10:36 Drug: Xopenex (3) 1.25 mg Route: Inhalation; 13:23 Drug: Rocephin - (cefTRIAXone) 1 grams {Note: given as IVP over 3 min.} Route: IVPB; iw Infused Over: 30 mins; Site: right antecubital; Disposition: 03/02/18 12:56 Hospitalization ordered by Teodora Friend for Observation. Preliminary diagnosis is Pneumonia, unspecified organism. - Bed requested for Telemetry/MedSurg (observation). - Status is Observation. iw - Condition is Fair. - Problem is an ongoing problem. - Symptoms have improved. UTI on Admission? No Signatures: Dis[facility] Cheryle Yusuf RN RN Yo Lara RN RN Eliseo Monique MD MD [facility] Jessica Pelaez RN RN iw Corrections: (The following items were deleted from the chart) 13:13 12:56 Hospitalization Ordered by Teodora Friend MD for Observation. Preliminary diagnosis is Pneumonia, unspecified organism. Bed requested for Telemetry/MedSurg (observation). Status is Observation. Condition is Fair. Problem is an ongoing problem. Symptoms have improved. UTI on Admission? No. kdr 13:55 13:13 03/02/2018 12:56 Hospitalization Ordered by Teodora Friend MD for Observation. iw Preliminary diagnosis is Pneumonia, unspecified organism. Bed requested for Telemetry/MedSurg (observation). Status is Observation. Condition is Fair. Problem is an ongoing problem. Symptoms have improved. UTI on Admission? No. dw
--- NOTE | 2018-03-02 12:57 | ER ---
Nurse's Notes [facility] Name: Suha Renae Age: 82 yrs Sex: Female : 1935 Arrival Date: 03/02/2018 Time: 09:24 Bed 14 Private MD: Diagnosis: Pneumonia, unspecified organism Presentation: 03/02 09:35 Presenting complaint: Patient states: Left Ear pain, productive cough for several days, sg unsure if any fever per pt, reports seen at [facility] and given prescriptions but has not been able to get them filled yet, awaiting a nebulizer to be delivered on the 15th per pt family. Transition of care: patient was not received from another setting of care. Onset of symptoms was March 02, 2018. Risk Assessment: Do you want to hurt yourself or someone else? Patient reports no desire to harm self or others. Initial Sepsis Screen: Does the patient meet any 2 criteria? HR > 90 bpm. No. Patient's initial sepsis screen is negative. Does the patient have a suspected source of infection? Yes: Productive cough/pneumonia. Care prior to arrival: None. 09:35 Method Of Arrival: Wheelchair sg 09:35 Acuity: KIMBERLEY 3 sg Historical: - Allergies: 09:38 No Known Allergies; sg - PMHx: 09:38 COPD; Hypertension; sg - Immunization history:: Adult Immunizations not up to date. - Social history:: Smoking status: Patient uses tobacco products. - Ebola Screening: : Patient negative for fever greater than or equal to 101.5 degrees Fahrenheit, and additional compatible Ebola Virus Disease symptoms Patient denies exposure to infectious person Patient denies travel to an Ebola-affected area in the 21 days before illness onset No symptoms or risks identified at this time. Screenin:00 Abuse screen: Denies threats or abuse. Denies injuries from another. Nutritional sg screening: No deficits noted. Tuberculosis screening: No symptoms or risk factors identified. Never had TB. Fall Risk None identified. Assessment: 09:35 General: Appears in no apparent distress. well groomed, well developed, well nourished, sg Behavior is calm, cooperative, appropriate for age. Pain: Complains of pain in painful cough, left ear pain Quality of pain is described as aching. Neuro: Level of Consciousness is awake, alert, obeys commands, Gait is steady, pt reports weak knee that is chronic. Speech is normal, Facial symmetry appears normal. Cardiovascular: Capillary refill is brisk in bilateral fingers Patient's skin is warm and dry. Pulses are palpable in right radial artery and left radial artery Chest pain is denied. Cardiovascular: Rhythm is. Respiratory: Reports cough that is productive, labored breathing Airway is patent Respiratory effort is even, unlabored, Respiratory pattern is regular, symmetrical, Breath sounds are coarse Breath sounds are diminished in right posterior lower lobe. GI: Abdomen is flat, non-distended, Bowel sounds present X 4 quads. : No signs and/or symptoms were reported regarding the genitourinary system. EENT: Ear canal reddened left ear canal, pt c/o pain in left ear. Derm: Skin is pink, warm \T\ dry. Musculoskeletal: No signs and/or symptoms reported regarding the musculoskeletal system. 10:40 Reassessment: Patient appears in no apparent distress at this time. Patient and/or sg family updated on plan of care and expected duration. Pain level reassessed. Patient is alert, oriented x 3, equal unlabored respirations, skin warm/dry/pink. Patient states symptoms have not improved. 12:41 Reassessment: Patient appears in no apparent distress at this time. attempt to ambulate sg pt, pt became SOB with Dyspnea on Exertion, saturation on roomair noted to be 96 percent but RR increased to 39 bpm, and HR increased to 120 on pulse oximetry, pt assisted back to bed, notified. Vital Signs: 09:36 BP 142 / 92; Pulse 92; Resp 17; Temp 98.2; Pulse Ox 100% on R/A; Weight 61.23 kg (R); sg Height 5 ft. 2 in. (157.48 cm); Pain 6/10; 11:00 BP 150 / 92; Pulse 99; Resp 20; Pulse Ox 97% on R/A; Pain 6/10; sg 12:40 BP 152 / 99; Pulse 116; Resp 32; Pulse Ox 96% on R/A; Pain 6/10; sg 12:44 Pulse 97; Resp 30; Pulse Ox 94% on R/A; sg 09:36 Body Mass Index 24.69 (61.23 kg, 157.48 cm) sg 12:44 pt assisted back to bed, pt encouraged to deep breath and focus on decreasing RR at this time ED Course: 09:24 Patient arrived in ED. mr 09:27 Eliseo Monique MD is Attending Physician. kdr 09:34 Yo Lara, RN is Primary Nurse. sg 09:36 Triage completed. sg 09:36 Arm band placed on. sg 10:00 No provider procedures requiring assistance completed. sg 10:30 Initial lab(s) drawn, by me, sent to lab. First set of blood cultures drawn by me. sg 10:39 Awaiting for x-ray. sg 11:09 CXR XRAY In Process Unspecified. EDMS 11:16 X-ray completed. Portable x-ray completed in exam room. Patient tolerated procedure mh1 well. 12:56 Teodora Friend MD is Hospitalizing Provider. kdr 13:09 Flu and/or RSV swab sent to lab. sg 13:15 Initial lab(s) drawn, by me, sent to lab. Inserted saline lock: 22 gauge in right iw antecubital area, using aseptic technique. Blood collected. Administered Medications: 10:36 Drug: Xopenex (3) 1.25 mg Route: Inhalation; sg 13:23 Drug: Rocephin - (cefTRIAXone) 1 grams {Note: given as IVP over 3 min.} Route: IVPB; iw Infused Over: 30 mins; Site: right antecubital; Outcome: 12:56 Decision to Hospitalize by Provider. kdr 13:26 Admitted to Tele accompanied by tech, family with patient, via wheelchair, room 415, iw with chart, Report called to GHAZALA Ryder 13:26 Condition: stable 13:26 Instructed on follow up and referral plans. medication usage, safety practices, Demonstrated understanding of instructions. 13:55 Patient left the ED. iw Signatures: Dispatcher [employer] EDMS Yo Lara, GHAZALA RN Eliseo Monique MD MD [facility] Casey Samaria m[facility] Jessica Pelaez RN RN iw Corrections: (The following items were deleted from the chart) 10:00 09:35 Respiratory: Airway is patent Respiratory effort is even, unlabored, Respiratory sg pattern is regular, symmetrical, Breath sounds are clear sg
[2018-03-02] MEDS ORDERED: CEFTRIAXONE/SWI 1gm 1 GM/10 ML SYR ONE (13:10)
[2018-03-02 14:28] VITALS: BMI 20.7
[2018-03-02] MEDS ORDERED: POTASSIUM 25 MEQ EFFERV TAB PO ONE ×2 (14:32→22:20)
[2018-03-02] MEDS: ACETAMINOPHEN 500 MG TAB PO PRN ×2 (14:40→21:51)
--- NOTE | 2018-03-02 16:06 | P.HP ---
Certification for Inpatient Patient admitted to: Observation With expected LOS: <2 Midnights Patient will require the following post-hospital care: None Practitioner: I am a practitioner with admitting privileges, knowledge of patient current condition, hospital course, and medical plan of care. Services: Services provided to patient in accordance with Admission requirements found in Title 42 Section 412.3 of the Code of Federal Regulations Patient History Date of Service: 03/02/18 Primary Care Provider: [facility] Reason for admission: SOB History of Present Illness: This is a 82-year-old female with significant past medical history of COPD and high blood pressure presented to the ED from the [facility]. Patient went to the [facility] this morning due to shortness of breath and worsening of cough and congestion. Patient stated that she has a history of COPD. Has been waiting for nebulizers to arrive at the house. She has not been able to use them as she is not available to her. Patient noted that she started getting short of breath and had worsening of the cough since past couple of days and thus decided to come to the ED for or other workup after she visited [facility]. Patient denies having any fever chills nausea vomiting or any other associated symptoms. Patient was recently admitted for similar complaints in the past for pneumonia and was discharged home with nebulizers steroids and antibiotic In the ER patient was found to be dyspneic along with x-ray which was consistent with left lower lobe pneumonia and thus was admitted for further workup. Allergies No Known Allergies Allergy (Verified 03/02/18 14:05) Home Medications: Albuterol Sulfate [Proair Hfa] 8.5 gm IH BID 10/19/15 Duloxetine HCl [Cymbalta] 60 mg PO DAILY 10/19/15 Losartan Potassium [Cozaar] 50 mg PO BID 10/19/15 Pregabalin [Lyrica] 150 mg PO BID 10/19/15 Docosahexanoic AC/Epa [Fish Oil 1,000 MG*] 1 cap PO BEDTIME 01/17/18 Omeprazole [Prilosec] 40 mg PO DAILY 01/17/18 Sennosides/Docusate Sodium [Stool Softener-Laxative Tablet] 1 tab PO BID Acetaminophen [Tylenol Extra Strength] 1 tab PO PRN PRN 01/18/18 Amiloride HCl 1 tab PO BID 03/02/18 Fluticasone/Salmeterol [Advair Hfa 115-21 Mcg Inhaler] 1 puff IH BID 03/02/18 - Past Medical/Surgical History Has patient received pneumonia vaccine in the past: Yes Diabetic: No -: Hypertension -: GERD -: Hyperlipidemia -: GERD -: COPD -: Osteoarthritis -: Hysterectomy -: Right knee replacement Psychosocial/ Personal History: She is since 1954. She has 4 children. She used to work odd jobs. - Family History Family History: Reviewed- Non-Contributory - Family History Mother -: Other (see notes) Notes: parkinsons Father -: Lung disease, Other (see notes) Notes: copd - Social History Smoking Status: Never smoker Alcohol use: No CD- Drugs: No Caffeine use: Yes Place of Residence: Home Review of Systems 10-point ROS is otherwise unremarkable Physical Examination - Vital Signs Temperature: 99.9 F Blood Pressure: 154/76 Pulse: 100 Respirations: 20 Pulse Ox (%): 95 - Physical Exam General: Alert, In no apparent distress HEENT: Atraumatic, PERRLA, Mucous membr. moist/pink, EOMI, Sclerae nonicteric Neck: Supple, 2+ carotid pulse no bruit, No LAD, Without JVD or thyroid abnormality Respiratory: Normal air movement, Expiratory wheezes, Inspiratory wheezes Cardiovascular: Regular rate/rhythm, Normal S1 S2 Gastrointestinal: Normal bowel sounds, No tenderness Musculoskeletal: No tenderness Integumentary: No rashes Neurological: Normal gait, Normal speech, Normal strength at 5/5 x4 extr, Normal tone, Normal affect Lymphatics: No axilla or inguinal lymphadenopathy - Studies Laboratory Data (last 24 hrs) 03/02/18 10:30: Sodium 142, Potassium 3.4 L, BUN 14, Creatinine 0.70, Glucose 110 H 03/02/18 10:30: WBC 12.1 H, Hgb 11.5 L, Hct 33.0 L, Plt Count 244 Assessment and Plan - Problems (Diagnosis) (1) COPD exacerbation Current Visit: Yes Status: Acute Plan: COPD exacerbation 2.2 to Noncompliance with medication and viral illness -Duonebs, Steriods and Oxygen for now -Procal is pending -Continue Abx till procal negative and sputum culture (2) Hypertension Current Visit: No Status: Chronic Plan: Start home medication Qualifiers: Hypertension type: essential hypertension Qualified Code(s): I10 - Essential (primary) hypertension (3) GERD (gastroesophageal reflux disease) Onset Date: 01/18/18 Current Visit: No Status: Chronic Plan: Restart home medication Qualifiers: Esophagitis presence: without esophagitis Qualified Code(s): K21.9 - Gastro -esophageal reflux disease without esophagitis - Plan Patient to be admitted to medical-surgical floor for COPD exacerbation most likely secondary to medication noncompliance versus viral illness. Discharge Plan: Home Plan to discharge in: 48 Hours - Advance Directives Does patient have a Living Will: No Does patient have a Durable POA for Healthcare: No - Code Status/Comfort Care Code Status Assessed: Yes Critical Care: No
[2018-03-02] MEDS: LOSARTAN POTASSIUM 50 MG TABLET PO SCH (20:30)
[2018-03-02] MEDS: AMILORIDE HCL 5 MG TABLET PO SCH (20:30)
[2018-03-02] MEDS ORDERED: DOCOSAHEXANOIC AC/EPA 1000 MG PO SCH (21:00)
[2018-03-02] MEDS: ALBUTEROL 2.5 MG/3 ML NEB SOL NEB PRN (22:40)
[2018-03-02] MEDS: IPRATROPIUM BROM 0.5MG/2.5ML NEB PRN (22:40)
[2018-03-03 06:30] LABS: Bilirubin Total 0.7 mg/dL (0.2-1.0); Magnesium 1.6 mg/dL (1.8-2.4); Phosphorus 3.2 mg/dL (2.5-4.9); Potassium 4.4 mmol/L (3.5-5.1); Protein, Total 7.1 g/dL (6.4-8.2)
[2018-03-03] MEDS ORDERED: PANTOPRAZOLE 40MG TABLET PO SCH (06:30)
[2018-03-03 08:08] LABS: Absolute Lymphocytes (CBC) 1.2 K/uL (0.7-4.9); Absolute Monocytes 0.6 K/uL (0.1-1.3); Absolute Neutrophil 4.9 K/uL (1.8-8.0); Basophils % 0.5 % (0-1.3); Eosinophils % 0.4 % (0-4.4); Hematocrit 31.7 % (36.0-45.0); Lymphocytes % 17.5 % (15.3-44.8); MCH 27.7 pg (27.0-35.0); MCV 80.3 fL (80-100); MPV 8.8 fL (7.6-11.3); Monocytes % 8.6 % (3.3-12.3); RBC Red Blood Cell Count 3.95 M/uL (3.86-4.86)
[2018-03-03 08:34] VITALS: BP 147/76; TEMP 97.8
[2018-03-03] MEDS ORDERED: predniSONE 20 MG TAB PO SCH (09:00)
[2018-03-03] MEDS ORDERED: DULOXETINE 30 MG CAP PO SCH (09:00)
[2018-03-03] MEDS ORDERED: MAGNESIUM SULFATE 1 gm IVPB 1 GM/100 ML BAG IV ONE (09:00)
[2018-03-03] MEDS: AMILORIDE HCL 5 MG TABLET PO SCH (09:13)
[2018-03-03] MEDS: LOSARTAN POTASSIUM 50 MG TABLET PO SCH (09:14)
[2018-03-03] MEDS: ACETAMINOPHEN 500 MG TAB PO PRN (09:14)
[2018-03-03] MEDS: IPRATROPIUM BROM 0.5MG/2.5ML NEB PRN (11:50)
[2018-03-03] MEDS: ALBUTEROL 2.5 MG/3 ML NEB SOL NEB PRN (11:50)
--- NOTE | 2018-03-03 12:35 | P.SSS ---
Patient History Date of Service: 03/03/18 Primary Care Provider: [facility] Reason for admission: SOB History of Present Illness: This is a 82-year-old female with significant past medical history of COPD and high blood pressure presented to the ED from the [facility]. Patient went to the [facility] this morning due to shortness of breath and worsening of cough and congestion. Patient stated that she has a history of COPD. Has been waiting for nebulizers to arrive at the house. She has not been able to use them as she is not available to her. Patient noted that she started getting short of breath and had worsening of the cough since past couple of days and thus decided to come to the ED for or other workup after she visited [facility]. Patient denies having any fever chills nausea vomiting or any other associated symptoms. Patient was recently admitted for similar complaints in the past for pneumonia and was discharged home with nebulizers steroids and antibiotic In the ER patient was found to be dyspneic along with x-ray which was consistent with left lower lobe pneumonia and thus was admitted for further workup. Allergies No Known Allergies Allergy (Verified 03/02/18 14:05) Home Medications: Albuterol Sulfate [Proair Hfa] 8.5 gm IH BID 10/19/15 Duloxetine HCl [Cymbalta] 60 mg PO DAILY 10/19/15 Losartan Potassium [Cozaar] 50 mg PO BID 10/19/15 Pregabalin [Lyrica] 150 mg PO BID 10/19/15 Docosahexanoic AC/Epa [Fish Oil 1,000 MG*] 1 cap PO BEDTIME 01/17/18 Omeprazole [Prilosec] 40 mg PO DAILY 01/17/18 Sennosides/Docusate Sodium [Stool Softener-Laxative Tablet] 1 tab PO BID Acetaminophen [Tylenol Extra Strength] 1 tab PO PRN PRN 01/18/18 Amlodipine [Norvasc*] 5 mg PO BID 03/02/18 Fluticasone/Salmeterol [Advair Hfa 115-21 Mcg Inhaler] 1 puff IH BID 03/02/18 predniSONE [Prednisone*] 20 mg PO DAILY #10 tab 03/03/18 - Past Medical/Surgical History Has patient received pneumonia vaccine in the past: Yes Diabetic: No -: Hypertension -: GERD -: Hyperlipidemia -: GERD -: COPD -: Osteoarthritis -: COPD -: Pneumonia -: Hysterectomy -: Right knee replacement Psychosocial/ Personal History: She is since 1954. She has 4 children. She used to work odd jobs. - Family History Family History: Reviewed- Non-Contributory - Family History Mother -: Other (see notes) Notes: parkinsons Father -: Lung disease, Other (see notes) Notes: copd - Social History Smoking Status: Never smoker Alcohol use: No CD- Drugs: No Caffeine use: Yes Place of Residence: Home Review of Systems 10-point ROS is otherwise unremarkable Physical Examination - Vital Signs Temperature: 97.8 F Blood Pressure: 147/76 Pulse: 71 Respirations: 18 Pulse Ox (%): 98 - Physical Exam General: Alert, In no apparent distress HEENT: Atraumatic, PERRLA, Mucous membr. moist/pink, EOMI, Sclerae nonicteric Neck: Supple, 2+ carotid pulse no bruit, No LAD, Without JVD or thyroid abnormality Respiratory: Clear to auscultation bilaterally, Normal air movement Cardiovascular: Regular rate/rhythm, Normal S1 S2 Gastrointestinal: Normal bowel sounds, No tenderness Musculoskeletal: No tenderness Integumentary: No rashes Neurological: Normal gait, Normal speech, Normal strength at 5/5 x4 extr, Normal tone, Normal affect Lymphatics: No axilla or inguinal lymphadenopathy - Studies Microbiology Data (last 24 hrs): 03/02/18 10:30 Blood - Blood Anaerobic Blood Culture - Final - Diagnosis (Problem(s)) (1) COPD exacerbation Current Visit: Yes Status: Acute (2) Hypertension Current Visit: No Status: Chronic Plan: Start home medication Qualifiers: Hypertension type: essential hypertension Qualified Code(s): I10 - Essential (primary) hypertension (3) GERD (gastroesophageal reflux disease) Onset Date: 01/18/18 Current Visit: No Status: Chronic Plan: Restart home medication Qualifiers: Esophagitis presence: without esophagitis Qualified Code(s): K21.9 - Gastro -esophageal reflux disease without esophagitis Treatment Summary: All during the hospital stay patient remained stable Patient was initially admitted to the hospital for COPD exacerbation most likely secondary to medication noncompliance and viral illness. Patient was kept on DuoNeb steroids and oxygen here in the hospital. Was able to be successfully weaned off to room air and was asked to resume her inhalers. Patient was able to ambulate tolerated p.o. diet and was saturating well on room air and thus was discharged home under stable condition. Patient was asked to follow up with primary care provider and resume all her home medication as prescribed by her PCP. - Disposition Disposition: ROUTINE DISCHARGE Condition: GOOD Diet: Regular Activity: Ad katerina
[2018-03-03 15:46] VITALS: O2SAT 97
[2018-03-03] MEDS ORDERED: AMLODIPINE 5 MG TAB PO SCH (21:00)
== END 2018-03-03 13:53 | disposition home or self-care (01) ==
LOC: ER 09:22 → ERHOLD 12:53 → 4TH 13:27
PROVIDERS: ADMIT Family Medicine; ATTEND Family Medicine
DX: J44.1 Chronic obstructive pulmonary disease with (acute) exacerbation (principal); I10 Essential (primary) hypertension; K21.9 Gastro-esophageal reflux disease without esophagitis; Z96.651 Presence of right artificial knee joint
CPT/HCPCS: 36415; 71045; 80048; 80053; 83605 ×2; 83735; 84100; 84132; 84145; 85025 ×2; 87040 ×2; 87070; 87184; 87205; 87804 ×2; 94640; 96374; 99285; G0378 ×2; J0696; J3475; J7512